=== PATIENT | female | born 1995 | race Two or more races ===

== ENCOUNTER 2017-02-15 17:35 | Emergency (ER) | payer OTHER ==
[~2017-02-15] VITALS: Ht 160 cm; Wt 56.8 kg
[2017-02-15] MEDS ORDERED: ACETAMINOPHEN 325 MG TAB PO ONE (20:15)
--- NOTE | 2017-02-15 21:50 | REPUSA ---
CT of the head Clinical history: trauma. Technique: Multiple axial CT images were obtained through the head without administration of contrast . Comparison: None. Findings: The ventricles and sulci are symmetric bilaterally. There is no evidence of acute hemorrhag e or infarct. There is no midline shift, mass effect, or extra-axial fluid collection. The osseous st ructures are unremarkable. The visualized paranasal sinuses and mastoid air cells are clear. Impression: Negative study.
--- NOTE | 2017-02-15 21:50 | REPUSA ---
CT of the cervical spine Clinical history: trauma. Technique: Multiple axial CT images were obtained through the cervical spine without administration o f contrast. Coronal and sagittal 3-D reconstructed images were also obtained. Comparison: None. Findings: The cervical vertebral bodies are in satisfactory positioning and alignment. No fractures or dislocat ions are demonstrated. The odontoid process is intact. Intervertebral disc spaces are well-maintained . There is no evidence of facet subluxation. The neural foramen appear grossly patent. The cervical c ranial junction is intact. The cervical spinal canal demonstrates normal caliber and contour without evidence of spinal stenosis. The surrounding soft tissues are within normal limits. Impression: Unremarkable CT examination of the cervical spine.
[2017-02-15 22:25] VITALS: BP 120/69
--- NOTE | 2017-02-16 04:36 | ECGEPIP ---
Stationary ECG Study [facility] - ED Test Date: 2017-02-15 Pat Name: WOODY CAVAZOS Department: Room: - Gender: F Urgent Care Physician Assistant: LINDA : 1995 Requested By: RASHIDA Brothers PA-C Order Number: [id number] Reading MD: Miki Gurrola Measurements Intervals [place] Rate: 65 P: 65 ID: [id number] QRS: 83 QRSD: 93 T: 56 QT: 381 QTc: 398 Interpretive Statements SINUS RHYTHM WITH SINUS ARRHYTHMIA NO PRIORS Electronically Signed On 02-16-2017 4:36:24 EDT by Miki Gurrola
== END 2017-02-15 22:28 | disposition home or self-care (01) ==
LOC: M ED 17:35
DX: S06.0X0A Concussion without loss of consciousness, initial encounter (principal); Z72.0 Tobacco use; F12.10 Cannabis abuse, uncomplicated; W01.198A Fall on same level from slipping, tripping and stumbling with subsequent striking against other object, initial encounter; Y92.099 Unspecified place in other non-institutional residence as the place of occurrence of the external cause; Y93.89 Activity, other specified; Y99.9 Unspecified external cause status